=== PATIENT | female | born 1975 | race Caucasian/White ===

== ENCOUNTER 2020-05-20 17:49 | Emergency (ER) | payer OTHER | END 2020-05-20 21:27 | disposition left against medical advice (07) | LOC: ER1 17:49 | DX: R06.02 Shortness of breath (principal); H92.03 Otalgia, bilateral; R09.89 Other specified symptoms and signs involving the circulatory and respiratory systems; R05 Cough; Z53.21 Procedure and treatment not carried out due to patient leaving prior to being seen by health care provider ==